=== PATIENT | female | born 1980 | race Caucasian/White ===

== ENCOUNTER 2017-06-09 17:37 | Emergency (ER) | payer SELFPAY ==
[~2017-06-09] VITALS: Ht 170.2 cm; Wt 109.3 kg
[2017-06-09 18:00] VITALS: BP 115/68
[2017-06-09 18:43] LABS: Basophils # (auto) 0 uL; Basophils % (auto) 0.3 % (0.0-2.0); Eosinophils # (auto) 0.1 uL; Eosinophils % (auto) 1.1 % (0.0-7.0); Hematocrit 42.7 % (36.0-46.0); Hemoglobin 14.2 g/dL (12.2-16.2); Lymphocytes # (auto) 2.9 uL; Lymphocytes % (auto) 23.9 % (10.0-50.0); Mean Corpuscular Hgb Conc. 33.2 g/dL (32.0-36.0); Mean Corpuscular Volume 87.3 fL (80.0-100.0); Mean Platelet Volume 8.4 fL (6.9-10.8); Monocytes # (auto) 0.7 uL; Monocytes % (auto) 5.8 % (0.0-12.0); Neutrophils # (auto) 8.3 uL; Neutrophils % (auto) 68.9 % (37.0-80.0); Platelet Count (auto) 239 10^3/uL (140-450); Red Cell Distribution Width 15.1 % (11.8-14.3)
[2017-06-09 18:58] LABS: INR 0.94 (0.9-1.15); Partial Thromboplastin Time 27.9 sec (22.64-33.71); Prothrombin Time 10.2 sec (9.37-12.3)
[2017-06-09 19:06] LABS: Albumin 3.7 g/dL (3.4-5.0); Anion Gap 9 (5-15); Blood Urea Nitrogen 11 mg/dL (7-18); Calcium 9.6 mg/dL (8.5-10.1); Carbon Dioxide 26 mmol/L (21-32); Chloride 105 mmol/L (98-107); Glucose 86 mg/dL (74-106); Magnesium 2.2 mg/dL (1.6-2.6); Potassium 4.2 mmol/L (3.5-5.1); Sodium 140 mmol/L (136-145)
[2017-06-09 19:09] LABS: Aspartate Aminotransferase 13 U/L (15-37); BUN/Creatinine Ratio 12.8; GFR African American 95 mL/min; GFR Non-African American 78 mL/min
[2017-06-09 19:13] LABS: Alkaline Phosphatase 64 U/L (45-117); Bilirubin, Total 0.4 mg/dL (0.2-1.0); Total Protein 8.1 g/dL (6.4-8.2)
[2017-06-09 19:24] LABS: Temperature: 23.5 C (20.0-25.0)
== END 2017-06-09 21:15 | disposition left against medical advice (07) ==
LOC: ER 17:37
DX: R07.89 Other chest pain (principal); Z53.21 Procedure and treatment not carried out due to patient leaving prior to being seen by health care provider
CPT/HCPCS: 36415; 71020; 80053; 83735; 83880; 84484; 85025; 85610; 85730